=== PATIENT | male | born 1980 ===

== ENCOUNTER 2018-05-28 09:25 | Emergency (ER) | payer MEDICAID ==
[2018-05-28 10:22] VITALS: BP 137/93; PULSE 85; RESP 17; TEMP 98.6; O2SAT 98
--- NOTE | 2018-05-28 20:16 | ED PDOC ---
Arrival/HPI - History of Present Illness Narrative History of Present Illness (Text): 05/28/18 20:18 38 y/o male with PMH of asthma presents to ED c/o productive cough and sinus congestion x 1 week. Cough is productive of yellow sputum. Has been taking nyquil for symptoms without relief. 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 Has not received flu shot. Denies fevers, chills, sore throat, ear pain, headache, SOB, chest pain, abdominal pain, N/V, diarrhea, rash. <Catalina Haywood - Last Filed: 05/28/18 20:13> <Spenser Weaver - Last Filed: 05/29/18 13:27> - General Chief Complaint: Cough, Cold, Congestion Time Seen by Provider: 05/28/18 10:21 Past Medical History - Provider Review Nursing Documentation Reviewed: Yes - Cardiac Hx Cardiac Disorders: No - Pulmonary Hx Respiratory Disorders: Yes Hx Asthma: Yes - Neurological Hx Neurological Disorder: No - HEENT Hx HEENT Disorder: No - Renal Hx Renal Disorder: No - Endocrine/Metabolic Hx Endocrine Disorders: No - Hematological/Oncological Hx Blood Disorders: No - Integumentary Hx Dermatological Disorder: No - Musculoskeletal/Rheumatological Hx Musculoskeletal Disorders: No - Gastrointestinal Hx Gastrointestinal Disorders: No - Genitourinary/Gynecological Hx Genitourinary Disorders: No - Psychiatric Hx Psychophysiologic Disorder: No Hx Substance Use: No <Catalina Haywood - Last Filed: 05/28/18 20:13> Family/Social History - Physician Review Nursing Documentation Reviewed: Yes Family/Social History: No Known Family HX Smoking Status: Never Smoked Hx Alcohol Use: No Hx Substance Use: No <Catalina Haywood - Last Filed: 05/28/18 20:13> Allergies/Home Meds <Catalina Haywood - Last Filed: 05/28/18 20:13> <Spenser Weaver - Last Filed: 05/29/18 13:27> Allergies/Adverse Reactions: Allergies marshall Allergy (Verified 05/28/18 10:03) RASH Home Medications: Home Meds Medication Instructions Recorded Confirmed RX: Albuterol HFA [Ventolin HFA 90 2 puff NEB Q6 PRN 05/28/18 05/28/18 mcg/actuation (8 g)] Review of Systems - Physician Review All systems were reviewed & negative as marked: Yes - Review of Systems Constitutional: Normal. absent: Fevers Eyes: Normal ENT: Rhinorrhea, Sinus Congestion. absent: Hearing Changes, Voice Changes, Sore Throat, Epistaxis Respiratory: Cough, Sputum. absent: SOB, Wheezing Cardiovascular: absent: Chest Pain, Palpitations, Syncope Gastrointestinal: Normal. absent: Abdominal Pain, Stool Changes, Constipation, Diarrhea, Nausea, Vomiting, Hematochezia Genitourinary Male: Normal Musculoskeletal: Normal. absent: Back Pain, Neck Pain Skin: Normal. absent: Rash Neurological: Normal. absent: Headache, Dizziness Endocrine: Normal. absent: Diaphoresis Hemo/Lymphatic: Normal. absent: Adenopathy <Catalina Haywood - Last Filed: 05/28/18 20:13> Physical Exam Vital Signs Reviewed: Yes Vital Signs Temp Pulse Resp BP Pulse Ox 05/28/18 10:05 98.6 F 85 17 137/93 H 98 Temperature: Afebrile Blood Pressure: Normal Pulse: Regular Respiratory Rate: Normal Appearance: Positive for: Well-Appearing, Non-Toxic, Comfortable Pain Distress: None Mental Status: Positive for: Alert and Oriented X 3 - Systems Exam Head: Present: Atraumatic, Normocephalic Pupils: Present: PERRL Extroacular Muscles: Present: EOMI Conjunctiva: Present: Normal Ears: Present: Normal, NORMAL TM, Normal Canal. No: Erythema Mouth: Present: Moist Mucous Membranes Pharnyx: Present: Normal. No: ERYTHEMA, EXUDATE, TONSILS ENLARGED Nose (External): Present: Atraumatic Nose (Internal): Present: Normal Inspection, Moist Neck: Present: Normal Range of Motion. No: Meningeal Signs, MIDLINE TENDERNESS, Paraspinal Tenderness, Lymphadenopathy Respiratory/Chest: Present: Clear to Auscultation, Good Air Exchange. No: Respiratory Distress, Accessory Muscle Use Cardiovascular: Present: Regular Rate and Rhythm, Normal S1, S2. No: Murmurs Abdomen: No: Tenderness, Distention, Peritoneal Signs Back: Present: Normal Inspection. No: CVA Tenderness, Midline Tenderness, Paraspinal Tenderness Upper Extremity: Present: Normal Inspection, Normal ROM, NORMAL PULSES Lower Extremity: Present: Normal Inspection, NORMAL PULSES, Normal ROM Neurological: Present: GCS=15, CN II-XII Intact, Speech Normal Skin: Present: Warm, Dry, Normal Color. No: Rashes Lymphatic: No: Cervical Adenopathy Psychiatric: Present: Alert, Oriented x 3, Normal Insight, Normal Concentration <Catalina Haywood - Last Filed: 05/28/18 20:13> Vital Signs Temp Pulse Resp BP Pulse Ox 05/28/18 10:05 98.6 F 85 17 137/93 H 98 <Spenser Weaver - Last Filed: 05/29/18 13:27> Medical Decision Making ED Course and Treatment: 05/28/18 20:13 38 y/o male with PMH of asthma presents to ED c/o productive cough and sinus congestion x 1 week. Cough is productive of yellow sputum. Has been taking nyquil for symptoms without relief. 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 Has not received flu shot. Denies fevers, chills, sore throat, ear pain, headache, SOB, chest pain, abdominal pain, N/V, diarrhea, rash. Physical exam: Normal pulmonary, cardiac, abdominal, and ENT exams. will give antibiotics, tessalon perles, inhaler due to constant road travel and history of asthma impression: bronchitis Plan: Take antibiotics as prescribed Take Tessalon perles three times daily as needed for cough Use inhaler 2 puffs or nebulizer every 4-6 hours as needed Followup with primary doctor within 2 days plan discussed with pt who agrees and understands. pt comfortable with discharge home. <Catalina Haywood - Last Filed: 05/28/18 20:13> - PA / WEB PRODUCTION ASSISTANT / Resident Statement / has reviewed & agrees with the documentation as recorded. <Spenser Weaver - Last Filed: 05/29/18 13:27> Disposition/Present on Arrival - Present on Arrival Any Indicators Present on Arrival: No History of DVT/PE: No History of Uncontrolled Diabetes: No Urinary Catheter: No History of Decub. Ulcer: No History Surgical Site Infection Following: None - Disposition Have Diagnosis and Disposition been Completed?: Yes Disposition Time: 10:30 Patient Plan: Discharge <Catalina Haywood - Last Filed: 05/28/18 20:13> <Spenser Weaver - Last Filed: 05/29/18 13:27> - Disposition Diagnosis: Bronchitis Disposition: HOME/ ROUTINE Condition: GOOD Discharge Instructions (ExitCare): Acute Bronchitis Additional Instructions: Take antibiotics as prescribed Take Tessalon perles three times daily as needed for cough Use inhaler 2 puffs or nebulizer every 4-6 hours as needed Followup with primary doctor within 2 days Prescriptions: RX: Albuterol HFA [Ventolin HFA 90 mcg/actuation (8 g)] 2 puff IH [id number] PRN #60 puff PRN Reason: asthma Azithromycin [Z-Nirav] 250 mg PO DAILY #6 tab Benzonatate [Tessalon Perle] 100 mg PO Q8H PRN #21 capsule PRN Reason: Cough Referrals: Kathy Cheek MD [Medical Doctor] - Follow up with primary Forms: [employer] ([place]namese), WORK NOTE
== END 2018-05-28 10:42 | disposition home or self-care (01) ==
LOC: ED 09:25
DX: J40 Bronchitis, not specified as acute or chronic (principal)